=== PATIENT | male | born 1935 | race Caucasian/White ===

== ENCOUNTER 2020-03-25 15:08 | Emergency (ER) | payer MEDICARE, OTHER ==
[~2020-03-25] VITALS: Ht 177.8 cm; Wt 85.5 kg
[~2020-03-25 15:08] MED LIST: ALLO300T PO; EZET1TAB35 PO; FURO-93 PO; OMEG1CAP2 PO; PIOG15TA22 PO; POTASSIUM PO; SOLI5TAB2 PO
--- NOTE | 2020-03-25 15:30 | NUR ---
Imaging attempted to call pt. [email or web address].
[2020-03-25] MEDS ORDERED: HYDROcodone/APAP 5/325 TABLET PO STA (17:21)
[2020-03-25] MEDS ORDERED: HYDROcodone/APAP 5/325 TABLET ONE (17:33)
--- NOTE | 2020-03-25 17:58 | NUR ---
SLING APPLIED, PT DISCHARGED HOME.
[2020-03-25 18:12] VITALS: BP 122/68
== END 2020-03-25 18:13 | disposition home or self-care (01) ==
LOC: ED 15:49
DX: S46.911A Strain of unspecified muscle, fascia and tendon at shoulder and upper arm level, right arm, initial encounter (principal); S43.51XA Sprain of right acromioclavicular joint, initial encounter; M19.111 Post-traumatic osteoarthritis, right shoulder; Z87.891 Personal history of nicotine dependence; X50.0XXA Overexertion from strenuous movement or load, initial encounter; Y93.89 Activity, other specified; Y92.009 Unspecified place in unspecified non-institutional (private) residence as the place of occurrence of the external cause; Y99.8 Other external cause status
CPT/HCPCS: 99283